=== PATIENT | female | born 1950 | race Caucasian/White ===

== ENCOUNTER 2017-06-18 09:51 | Emergency (ER) | payer MEDICARE ==
[2017-06-18] MEDS ORDERED: Sodium Chloride 0.9% 1000 ML 1,000 ML ONE (10:10)
[2017-06-18] MEDS ORDERED: Sodium Chloride 0.9% 1000 ML 1,000 ML IV SCH (10:15)
[2017-06-18 10:22] LABS: Collection Type CATH; Leukocyte Esterase NEGATIVE (NEGATIVE)
[2017-06-18 10:23] LABS: ADD URINE CULTURE? YES (NO); Bilirubin NEGATIVE (NEGATIVE); Blood NEGATIVE Ery/ul (0-5); COMPLETE URINE MICROSCOPIC? YES; Glucose NEGATIVE (NEGATIVE)
[2017-06-18 10:34] LABS: BASOPHIL % 0.1 % (0.0-0.4); Eosinophil % 12.2 % (0.00-5.0); Granulocytes % 49.3 % (36.0-66.0); Lymphocytes % 27.9 % (24.0-44.0); Mean Cell Volume 107.2 fl (78-100); Mean Corpuscular Hemoglobin 33.2 pg (26-32); Mean Platelet Volume 8.6 fl (6-9.5); Monocytes % 10.5 % (0.0-12.0); Platelet Count 288 K/mm3 (150-450); Red Blood Count 3.19 M/mm3 (4.1-5.4); Red Cell Distribution Width 13.5 % (11.5-14.0); White Blood Count 7.3 K/mm3 (4.0-10.5)
[2017-06-18 10:41] LABS: ALBUMIN 3.5 g/dL (3.4-5.0); ALKALINE PHOSPHATASE 105 U/L (46-116); BLOOD UREA NITROGEN 21 mg/dL (9-20); CHLORIDE 107 mEq/L (98-107); Carbon Dioxide 31.4 mEq/L (21-32); Glucose 105 MG/DL (70-110); Potassium 3.8 mEq/L (3.5-5.1); SGOT/AST 28 U/L (15-37); SGPT/ALT 8 U/L (12-78); SODIUM 145 mEq/L (136-145); Total Protein 6.9 gm/dL (6.4-8.2)
[2017-06-18 10:56] LABS: Bacteria PACKED /HPF (NEGATIVE); Epithelial Cells FEW /HPF (FEW)
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
[2017-06-18 12:12] VITALS: PULSE 66
[2017-06-18 13:12] VITALS: O2SAT 94
[2017-06-18 13:14] LABS: VBG BASE EXCESS 5.3 (-2.0-2.0); VBG CARBOXYHEMOGLOBIN 3.2 % T HGB (0.0-6.9); VBG HCO3- 33.5 meq/L (22-28); VBG HEMOGLOBIN 11.5; VBG O2 SATURATION 45.3 (95-100); VBG POTASSIUM 3.9 (3.5-5.1); VBG pH 7.3 (7.32-7.42)
[2017-06-18 13:38] VITALS: BP 160/75
--- NOTE | 2017-06-18 20:25 | XRAY ---
Indication: Confusion. Multiple contiguous axial images obtained through the head without contrast. Comparison: March 09, 2015. Images through the base of the brain degraded by motion artifact even with repeat CT. Stable age-appropriate global atrophy and mild periventricular degenerative micro-ischemia bilaterally. No acute intracranial hemorrhage, abnormal extra-axial fluid collection, or mass effect. Fourth ventricle is midline without hydrocephalus. Bony calvarium intact. Visualized paranasal sinuses and mastoid air cells are clear. Impression: 1. Motion artifact. 2. Grossly stable nonacute senile brain. Comment: Preliminary interpretation was made by [facility]. No discrepancy. CTDI 65.91
--- NOTE | 2017-06-18 20:27 | XRAY ---
Indication: Confusion. Comparison: March 09, 2015. Portable chest unchanged again demonstrating chronic lung markings without focal infiltrate, consolidation, or large effusion. Heart is not enlarged for AP portable technique. Bony thorax intact again with mild degenerative changes. Impression: Stable nonacute chest with chronic features.
== END 2017-06-18 13:30 | disposition home or self-care (01) ==
LOC: ED 09:51
DX: R53.83 Other fatigue (principal); R41.0 Disorientation, unspecified; E78.00 Pure hypercholesterolemia, unspecified; I10 Essential (primary) hypertension; I25.2 Old myocardial infarction; E05.90 Thyrotoxicosis, unspecified without thyrotoxic crisis or storm; Z79.899 Other long term (current) drug therapy
CPT/HCPCS: 93041; 99284; 96360; 96361; 93005; 81000; 84443; 36415; 84439; 87186; 80307; 85025; 87077; 80053; 87086; 71010; 70450; 82805; 83605; P9612; G0481

== ENCOUNTER 2018-01-08 06:51 | Observation (INO) | payer MEDICARE ==
[2018-01-08] MEDS ORDERED: Sodium Chloride 0.9% 1000 ML 1,000 ML IV STA (07:06)
[2018-01-08] MEDS ORDERED: Sodium Chloride 0.9% 1000 ML 1,000 ML ONE (07:14)
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
[2018-01-08 07:26] LABS: BASOPHIL % 0.3 % (0.0-0.4); Basophil (Absolute #) 0.02 (0-0.4); Eosinophil % 4.4 % (0.00-5.0); Granulocyte Absolute (ANC) 4.23 (1.4-6.9); Granulocytes % 61.5 % (36.0-66.0); Hematocrit 38.2 % (35-47); Hemoglobin 12.6 gm/dl (12.0-16.0); Lymphocyte (Absolute #) 1.64 (1.0-4.6); Lymphocytes % 23.8 % (24.0-44.0); Mean Cell Volume 99.2 fl (78-100); Mean Corpuscular Hemoglobin 32.7 pg (26-32); Mean Platelet Volume 8.3 fl (6-9.5); Monocyte (Absolute #) 0.69 (0.0-1.3); Platelet Count 275 K/mm3 (150-450); Red Blood Count 3.85 M/mm3 (4.1-5.4); White Blood Count 6.9 K/mm3 (4.0-10.5)
[2018-01-08 07:41] LABS: ALBUMIN 3.7 g/dL (3.5-5.0); ALKALINE PHOSPHATASE 133 U/L (38-126); ANION GAP 11.1 MEQ/L (5-15); BLOOD UREA NITROGEN 17 mg/dL (7-17); CHLORIDE 106 mmol/L (98-107); CK-Creatinine Phosphokinase 31 U/L (30-135); Calcium 9.3 mg/dL (8.4-10.2); Carbon Dioxide 29 mmol/L (22-30); Creatinine 1 0.73 mg/dL (0.52-1.04); Glucose 111 mg/dL (74-106); Potassium 4.1 mmol/L (3.5-5.1); SGOT/AST 21 U/L (14-36); SGPT/ALT 24 U/L (0-35); SODIUM 142 mmol/L (137-145); Total Protein 6.7 g/dL (6.3-8.2)
[2018-01-08 07:42] LABS: ACETAMINOPHEN < 10 ug/ml (10-30); ETHYL ALCOHOL < 10 mg/dL (0-10); SALICYLATE < 1.0 mg/dL (2-20)
[2018-01-08 08:26] LABS: Appearance CLEAR (CLEAR); Bilirubin NEGATIVE (NEGATIVE); Blood NEGATIVE Ery/ul (0-5); Glucose NEGATIVE (NEGATIVE); Ketones NEGATIVE (NEGATIVE); Leukocyte Esterase NEGATIVE (NEGATIVE); Nitrite NEGATIVE (NEGATIVE); Protein,Urine Dip NEGATIVE (Negative); Urobilinogen NORMAL mg/dL (0-1)
[2018-01-08 08:40] LABS: Amphetamine,Urine NEGATIVE (NEGATIVE); Barbiturate,Urine NEGATIVE (NEGATIVE); Benzodiazepine,Urine POSITIVE (NEGATIVE); Cocaine,Urine NEGATIVE (NEGATIVE); Methadone,Urine NEGATIVE (NEGATIVE); Opiate,Urine NEGATIVE (NEGATIVE); PCP,Urine NEGATIVE (NEGATIVE); THC,Urine NEGATIVE (NEGATIVE)
[2018-01-08] MEDS ORDERED: DUONEB 0.5-3 MG/3 ml Neb IH PRN (09:01)
[2018-01-08] MEDS: Sodium Chloride 0.9% 1000 ML 1,000 ML IV SCH ×2 (09:53→19:57)
[2018-01-08] MEDS ORDERED: ACETAMINOPHEN PO PRN (12:05)
[2018-01-08] MEDS ORDERED: HYDROCODONE PO PRN (12:05)
[2018-01-08] MEDS ORDERED: NORCO 5/325 MG PO PRN (12:12)
[2018-01-08] MEDS ORDERED: MEDICATION INTERVENTION MC SCH (12:15)
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
[2018-01-08] MEDS: NORVASC 5 MG PO SCH (12:49)
[2018-01-08] MEDS: Imdur 30 MG PO SCH (12:49)
[2018-01-08] MEDS: Zestril 20 MG PO SCH ×2 (12:49→21:52)
[2018-01-08] MEDS: Ditropan XL 5 MG PO SCH ×2 (12:49→21:50)
[2018-01-08] MEDS: ENOXAPARIN SODIUM SQ SCH (12:51)
[2018-01-08] MEDS ORDERED: DUONEB 0.5-3 MG/3 ml Neb IH SCH (19:00)
--- NOTE | 2018-01-08 19:33 | XRAY ---
Indication: Pain following fall. Multiple contiguous axial images obtained through the cervical spine. Sagittal and coronal reformatted images obtained. Comparison: March 06, 2011. Axial images again negative for acute fracture, suspicious bony lesions, or spinal canal stenosis. Again mild/moderate C4-C6 degenerative endplate spurring and atlantoaxial degenerative changes. Sagittal and coronal reformatted images demonstrate normal alignment. Stable minimal C6/C7 and anterior wedging. No acute fracture, subluxation, or jump facet. Normal-appearing craniocervical junction. Stable 1 m right thyroid nodule/cyst and bilateral carotid calcifications. Remaining visualized noncontrasted soft tissues unremarkable. Lung apices clear. CT head reported separately. Impression: 1. Again negative for acute fracture/subluxation. 2. Stable multilevel degenerative changes. 3. Stable right thyroid nodule/cyst. Comment: Preliminary interpretation was made by [facility]. No critical discrepancy. CTDI 121.54
--- NOTE | 2018-01-08 19:33 | XRAY ---
Indication: Pain following fall. Comparison: June 18, 2017. Portable chest remains clear. Heart and mediastinal structures within normal limits for AP portable technique. Bony thorax intact again with mild osteopenia and degenerative changes. Impression: Stable nonacute chest with chronic features.
--- NOTE | 2018-01-08 19:34 | XRAY ---
Indication: Pain following fall. Multiple contiguous axial images obtained through the head without contrast. Comparison: June 18, 2017. Images through the base of the brain slightly degraded by motion artifact. Again age-appropriate global atrophy and mild periventricular degenerative micro-ischemia bilaterally. No acute intracranial hemorrhage, abnormal extra-axial fluid collection, or mass effect. Fourth ventricle is midline without hydrocephalus. Bony calvarium intact. Visualized paranasal sinuses and mastoid air cells are clear. Impression: Stable nonacute senile brain. Comment: Preliminary interpretation was made by [facility]. No discrepancy. CTDI 48.76
[2018-01-08] MEDS ORDERED: ZOCOR 20MG PO SCH (22:00)
[2018-01-08] MEDS ORDERED: NON-FORMULARY ITEM (Atorvastatin Calcium [Lipitor] 80 MG) PO SCH (22:00)
[2018-01-09] MEDS: Sodium Chloride 0.9% 1000 ML 1,000 ML IV SCH ×2 (04:59→14:42)
--- NOTE | 2018-01-09 07:45 | PCM.NOTE ---
Date and Time: 01/09/18 0742 Subjective Assessment: patient admits to overdosing on xanax, hasn't had any money to fill her meds since June and has no insurance. states she has not been taking xanax regularly but got some from a friend and overdoses, states she didn't intend to kill herself but then I asked about the letter and she states, yes she thinks she did write one Objective Exam General Appearance: no apparent distress Neurologic Exam: alert, oriented x 3 Skin Exam: normal color, warm, dry Respiratory Exam: normal breath sounds, lungs clear, No respiratory distress Cardiovascular Exam: regular rate/rhythm, normal heart sounds Gastrointestinal/Abdomen Exam: soft, No tenderness, No mass OBJECTIVE DATA Vital Signs: Vital Signs - 24 hr Temp Pulse Resp BP Pulse Ox 01/09/18 06:58 90 18 97 01/09/18 04:30 98.6 F 93 H 24 146/65 96 01/09/18 00:00 97.8 F 91 H 20 130/67 95 01/08/18 20:00 97.6 F 88 23 136/75 95 01/08/18 19:55 93 H 22 93 L 01/08/18 16:00 86 18 139/66 96 01/08/18 12:00 84 24 154/94 99 01/08/18 10:23 82 16 99 01/08/18 09:38 97.6 F 85 20 181/110 99 01/08/18 09:01 96 01/08/18 08:23 85 16 172/84 95 Oxygen-Last 24 hours O2 Percentage 2 Liters = 28% Oxygen Flowrate (L/min)-RT 2 Oxygen Flowrate (L/min)-RT 2 Oxygen Flowrate (L/min)-RT 2 Intake and Output: Intake & Output 01/06/18 01/07/18 01/08/18 01/09/18 11:59 11:59 11:59 11:59 Intake Total 2492 Balance 2492 Weight 88.8 kg Lab Results: Lab Results-Last 24 Hours 01/08/18 01/08/18 01/08/18 Range/Units 10:15 13:15 16:15 Troponin I < 0.012 < 0.012 < 0.012 (0.000-0.034) ng/mL 01/08/18 01/08/18 Range/Units 19:05 22:05 Troponin I < 0.012 < 0.012 (0.000-0.034) ng/mL Assessment/Plan (1) Suicide attempt Current Visit: Yes Status: Acute Assessment & Plan: patient is alert and oriented today, to have psych consult (2) Overdose Current Visit: Yes Status: Acute Qualifiers: Encounter type: initial encounter Injury intent: intentional self-harm Qualified Code(s): T50.902A - Poisoning by unspecified drugs, medicaments and biological substances, intentional self-harm, initial encounter Assessment & Plan: no more controlled substances, since patient has been off for 6 months no risk of benzo withdrawal, I explained this to her and she adamantly refuses taking them at all since June Code(s): T50.901A - POISONING BY UNSP DRUG/MEDS/BIOL SUBST, ACCIDENTAL, INIT (3) COPD (chronic obstructive pulmonary disease) Current Visit: Yes Status: Chronic Qualifiers: COPD type: chronic bronchitis (4) Hyperthyroidism Current Visit: Yes Status: Chronic Code(s): E05.90 - THYROTOXICOSIS, UNSP WITHOUT THYROTOXIC CRISIS OR STORM (5) Chest tightness Current Visit: No Status: Acute
[2018-01-09] MEDS: Zestril 20 MG PO SCH (09:41)
[2018-01-09] MEDS: Ditropan XL 5 MG PO SCH (09:41)
[2018-01-09] MEDS: Imdur 30 MG PO SCH (09:41)
[2018-01-09] MEDS: NORVASC 5 MG PO SCH (09:42)
[2018-01-09] MEDS: ENOXAPARIN SODIUM SQ SCH (09:43)
[2018-01-09] MEDS ORDERED: NON-FORMULARY ITEM (Amlodipine Besylate [Norvasc] 2.5 MG) PO SCH (10:00)
[2018-01-09] MEDS ORDERED: METHIMAZOLE 5 MG PO SCH (10:00)
[2018-01-09] MEDS ORDERED: PTU 50MG PO SCH (15:00)
[2018-01-09 16:22] VITALS: BP 142/76; PULSE 107; O2SAT 96
== END 2018-01-09 17:20 | disposition short-term general hospital (02) ==
LOC: ED 06:51 → ICU 09:27
PROVIDERS: ADMIT Family Medicine; ATTEND Family Medicine
DX: T42.4X2A Poisoning by benzodiazepines, intentional self-harm, initial encounter (principal); F32.9 Major depressive disorder, single episode, unspecified; I10 Essential (primary) hypertension; R07.89 Other chest pain; F41.9 Anxiety disorder, unspecified; E05.90 Thyrotoxicosis, unspecified without thyrotoxic crisis or storm; J44.9 Chronic obstructive pulmonary disease, unspecified; R45.82 Worries; E78.00 Pure hypercholesterolemia, unspecified; G47.9 Sleep disorder, unspecified; Z79.899 Other long term (current) drug therapy; I25.2 Old myocardial infarction; M19.90 Unspecified osteoarthritis, unspecified site; K21.9 Gastro-esophageal reflux disease without esophagitis
CPT/HCPCS: 36415; 70450; 71045; 72125; 80053; 80307; 81002; 82550; 84484; 85025; 90791; 93005; 93041; 93268; 94640; 96360; 99285; G0481; J1650; Q3014; A9270-GY; G0378; G0480

== ENCOUNTER 2020-06-02 18:59 | Emergency (ER) | payer MEDICARE ==
[2020-06-02] MEDS ORDERED: Catapres 0.1 MG PO STA (19:29)
[2020-06-02] MEDS ORDERED: TRANDATE 20 MG/5 ML SYRINGE IV ONE ×2 (19:30→19:36)
[2020-06-02] MEDS ORDERED: Catapres 0.1 MG ONE (19:36)
[2020-06-02 19:59] LABS: Absolute Neutrophil Ct (ANC) 3.95 (1.4-6.9); BASOPHIL % 0.3 % (0.0-0.4); Basophil (Absolute #) 0.02 (0-0.4); Eosinophil % 3.4 % (0.00-5.0); Eosinophil (Absolute #) 0.23 (0-0.5); Hematocrit 36.7 % (35-47); Hemoglobin 12.1 gm/dl (12.0-16.0); Lymphocyte (Absolute #) 2.16 (1.0-4.6); Lymphocytes % 31.5 % (24.0-44.0); Mean Cell Volume 102.5 fl (78-100); Mean Corpuscular Hemoglobin 33.8 pg (26-32); Monocyte (Absolute #) 0.49 (0.0-1.3); Monocytes % 7.2 % (0.0-12.0); Neutrophil % 57.6 % (36.0-66.0); Platelet Count 47 K/mm3 (150-450); Red Blood Count 3.58 M/mm3 (4.1-5.4); Red Cell Distribution Width 16.7 % (11.5-14.0); White Blood Count 6.9 K/mm3 (4.0-10.5)
[2020-06-02 20:01] LABS: INR 1.09 (0.8-3.0); PROTIME 12.3 SECONDS (9.95-12.35)
[2020-06-02 20:05] LABS: ALBUMIN 4.4 g/dL (3.5-5.0); ALKALINE PHOSPHATASE 147 U/L (38-126); ANION GAP 11.1 MEQ/L (5-15); BLOOD UREA NITROGEN 25 mg/dL (7-17); CHLORIDE 100 mmol/L (98-107); Calcium 9.5 mg/dL (8.4-10.2); Carbon Dioxide 31 mmol/L (22-30); Creatinine 1 0.92 mg/dL (0.52-1.04); EST GLOMERULAR FILTRATION RATE > 60.0 ML/MIN; Glucose 101 mg/dL (74-106); Potassium 3.8 mmol/L (3.5-5.1); SGOT/AST 20 U/L (14-36); SGPT/ALT 15 U/L (0-35); SODIUM 139 mmol/L (137-145); Total Protein 8.1 g/dL (6.3-8.2)
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
[2020-06-02] MEDS ORDERED: Catapres TTS-2 PATCH TOP SCH (21:00)
[2020-06-02] MEDS ORDERED: Catapres TTS-2 PATCH ONE (21:01)
[2020-06-02 21:03] VITALS: BP 117/76; PULSE 78
[2020-06-02 21:45] VITALS: O2SAT 97
[2020-06-02 22:22] LABS: Slide Review 1 YES
== END 2020-06-02 21:16 | disposition home or self-care (01) ==
LOC: ED 18:59
DX: I10 Essential (primary) hypertension (principal); I25.2 Old myocardial infarction
CPT/HCPCS: 36000; 36415; 80053; 84484; 85025; 85610; 85730; 96374; 99284; A9270-GY

== ENCOUNTER 2022-02-15 18:49 | Emergency (ER) | payer MEDICARE ==
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
[2022-02-15] MEDS ORDERED: NORCO 5/325 MG PO ONE (21:53)
[2022-02-15] MEDS ORDERED: NORCO 5/325 MG ONE (21:56)
[2022-02-15 22:24] VITALS: BP 142/71; PULSE 74; O2SAT 98
--- NOTE | 2022-02-16 08:37 | XRAY ---
Indication: Pain following fall. Comparison: None 3 view right shoulder demonstrates osteopenia and minimally displaced comminuted acute fracture humeral head/neck. Moderate degenerative changes of visualized thoracic spine. No other bony, articular, or soft tissue abnormalities.
--- NOTE | 2022-02-16 08:37 | XRAY ---
Indication: Pain following fall. Comparison: None 2 view right humerus demonstrates osteopenia and minimally displaced comminuted acute fracture humeral head/neck. No other bony, articular, or soft tissue abnormalities.
== END 2022-02-15 22:14 | disposition home or self-care (01) ==
LOC: ED 18:49
DX: S42.211A Unspecified displaced fracture of surgical neck of right humerus, initial encounter for closed fracture (principal); W01.0XXA Fall on same level from slipping, tripping and stumbling without subsequent striking against object, initial encounter; Y92.007 Garden or yard of unspecified non-institutional (private) residence as the place of occurrence of the external cause; M25.511 Pain in right shoulder; M79.621 Pain in right upper arm; E78.5 Hyperlipidemia, unspecified; I10 Essential (primary) hypertension; J43.9 Emphysema, unspecified; Z72.0 Tobacco use; Z79.899 Other long term (current) drug therapy
CPT/HCPCS: 36000; 73030; 73060; 99284; A9270-GY

== ENCOUNTER 2023-02-04 05:21 | Emergency (ER) | payer MEDICARE ==
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
[2023-02-04] MEDS ORDERED: SUBLIMAZE 100 MCG/2 ML IV ONE ×2 (06:35→07:31)
[2023-02-04] MEDS ORDERED: SUBLIMAZE 100 MCG/2 ML ONE ×2 (06:40→07:38)
--- NOTE | 2023-02-04 06:53 | XRAY ---
CLINICAL HISTORY:Trauma-fall- posterior head pain- no loc- patient on blood thinners; COMPARISON:None; TECHNIQUES:Axial non-contrast CT scan of the brain was performed from the skull base to the high parietal region; FINDINGS: No definite calvarium fractures. No intracerebral or extra axial hematoma. Tiny ill-defined hypodense areas were noted in the subcortical and periventricular white matter bilaterally suggesting microvascular ischemic changes. Tiny old lacunar infarcts were noted in the right basal ganglia region. Prominent ventricles and extra-axial CSF spaces noted finding consistent with age-appropriate global brain involutional changes. Marvin-white matter differentiation is maintained. No midline shifts or deformity. No established territorial infarction was identified. Normal configuration of the cerebral ventricles. Normal CT appearance of the posterior fossa structures namely the cerebellar hemispheres, brainstem, and cerebellar peduncles. The IACs are unremarkable. The cerebellopontine angles are clear. The pituitary gland, the pineal gland, and the optic chiasm are unremarkable. The osseous structures in the skull base are unremarkable. The scanned paranasal sinuses are clear. IMPRESSION: No definite calvarium fractures. No intracerebral or extra axial hematoma. Mild microvascular images noted in the brain with old lacunar infarcts in the right basal ganglia region. Age-appropriate global brain involutional changes noted. No established territorial infarction or mass effect. Electronically Signed by: Perri Diaz MD. (02/04/2023 05:47:11 [employer] LIAISON)
--- NOTE | 2023-02-04 07:07 | XRAY ---
CLINICAL HISTORY:fall COMPARISON:None; TECHNIQUES:Axial sections of the CT pelvis were obtained without administration of intravenous contrast. Sagittal and coronal images were also acquired; FINDINGS: Minimally displaced oblique intertrochanteric fracture of the right proximal femur with mild adjacent soft tissue swelling. A fracture line is seen passing through the right acetabular roof and the superior aspect of the acetabulum representing undisplaced fracture. Bilateral hip joints are intact. Moderate bilateral hip joint degenerative changes. Subchondral geode within the acetabulum on the right side. Disc bulge at L4-L5 level resulting in mild bilateral neural foraminal narrowing. Facet arthropathic changes in the visualized lumbar spine. Generalized reduced bone density is noted. Visualized pelvic viscera appears grossly unremarkable. IMPRESSION: Minimally displaced oblique intertrochanteric fracture of the right proximal femur with mild adjacent soft tissue swelling. A fracture line is seen passing through the right acetabular roof and the superior aspect of the acetabulum representing undisplaced fracture. Generalized reduced bone density is noted. [facility] was called at 6:02 AM [employer]ACHINE, 02/04/2023 and results were verbally communicated to Dr. Castellano. Electronically Signed by: Perri Diaz MD. (02/04/2023 06:03:34 [employer])
[2023-02-04 08:10] VITALS: O2SAT 98
--- NOTE | 2023-02-04 08:43 | XRAY ---
Indication: Pain following fall. Comparison: None 2 view left forearm demonstrates osteopenia, old distal radius fracture, and mild/moderate 1st metacarpal multangular scaphoid degenerative changes with small posterior heterotopic ossification. No other bony, articular, or soft tissue abnormalities.
--- NOTE | 2023-02-04 08:45 | XRAY ---
Indication: Pain following fall. Comparison: None 3 view right hand limited due to overlying IV catheter/tubing. Osteopenia, minimal degenerative changes all IP/MCP joints, and mild degenerative changes 1st metacarpal multangular scaphoid articulation. No other bony, articular, or soft tissue abnormalities.
[2023-02-04 09:05] VITALS: BP 161/74; PULSE 80
[2023-02-04] MEDS ORDERED: Ativan 2 MG/1 ML VIAL IV ONE (09:06)
[2023-02-04] MEDS ORDERED: Ativan 2 MG/1 ML VIAL ONE (09:22)
== END 2023-02-04 09:36 | disposition short-term general hospital (02) ==
LOC: ED 05:21
DX: S72.144A Nondisplaced intertrochanteric fracture of right femur, initial encounter for closed fracture (principal); W01.0XXA Fall on same level from slipping, tripping and stumbling without subsequent striking against object, initial encounter; M79.641 Pain in right hand; M79.632 Pain in left forearm; E78.5 Hyperlipidemia, unspecified; I10 Essential (primary) hypertension; J43.9 Emphysema, unspecified; Z79.899 Other long term (current) drug therapy; Z72.0 Tobacco use
CPT/HCPCS: 51702; 70450; 72192; 73090; 73130; 96374; 96375; 96376; 99285; J2060; J3010

== ENCOUNTER 2023-06-29 14:38 | Emergency (ER) | payer MEDICARE ==
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
[2023-06-29 15:21] LABS: Mean Cell Volume 96.9 fL (78-100); Mean Corpuscular Hemoglobin 27.3 pg (26-32); Mean Corpuscular Hgb Concent. 28.2 g/dL (32-36); Red Blood Count 2.27 x10^6/uL (4.1-5.4); Red Cell Distribution Width 17.2 % (11.5-14.0); White Blood Count 5.1 x10^3/uL (4.0-10.5)
[2023-06-29 15:25] LABS: Hemoglobin 6.2 g/dL (12.0-16.0)
[2023-06-29 15:26] LABS: Platelet Count 12 x10^3/uL (150-450)
[2023-06-29 15:51] LABS: ALBUMIN 3.8 g/dL (3.5-5.0); ALKALINE PHOSPHATASE 178 U/L (38-126); AMYLASE 71 U/L (30-110); BLOOD UREA NITROGEN 30 mg/dL (7-17); CHLORIDE 109 mmol/L (98-107); Calcium 8.7 mg/dL (8.4-10.2); Carbon Dioxide 24 mmol/L (22-30); Creatinine 1 0.77 mg/dL (0.52-1.04); EST GLOMERULAR FILTRATION RATE > 60.0 ML/MIN; Glucose 103 mg/dL (74-106); LIPASE 180 U/L (23-300); Potassium 4.4 mmol/L (3.5-5.1); SGOT/AST 26 U/L (14-36); SGPT/ALT 17 U/L (0-35); SODIUM 141 mmol/L (137-145); T4 (Thyroxine) 8.28 ug/dL (5.53-10.96); Total Protein 7.1 g/dL (6.3-8.2)
[2023-06-29 15:55] LABS: Basophil 2 % (0.0-1.0); Eosinophil 1 % (0.00-3.0); Lymphocytes 23 % (24-44); Monocyte 3 % (0.0-12.0); Neutrophils 71 % (36.0-66.0); Platelet Estimate DECREASED (NORMAL); Total Cells Counted 100
[2023-06-29 15:56] LABS: ANISOCYTOSIS 1+; Hypochromia 1+
[2023-06-29 15:57] LABS: Polychromasia 2+
--- NOTE | 2023-06-29 16:31 | XRAY ---
Indication: Vomiting. Anemia. Multiple contiguous axial images obtained through the abdomen and pelvis without contrast. Comparison: May 10, 2013 Study is slightly degraded by respiration artifact throughout. Lung bases again demonstrates dependent atelectasis. Heart not enlarged. New small hiatal hernia. Noncontrasted stomach and bowel loops appear nonobstructed. Appendix not seen. Worsening moderate diffuse scatter colonic fecal debris. Again tiny splenic calcified granulomas. New 1 cm right lower pole renal cyst. No free fluid/air. Remaining liver, gallbladder, pancreas, spleen, adrenal glands, kidneys, ureters, bladder, and uterus are unremarkable for noncontrast exam. Worsening moderate scattered aortoiliac calcifications without AAA. Osseous structures intact again with osteopenia and worsening mild/moderate degenerative changes throughout the thoracolumbar spine. New old bilateral proximal femur fractures with intact orthopedic hardware. No ventral or inguinal hernias. Impression: 1. Respiration artifact. 2. Worsening moderate diffuse fecal stasis. 3. New small hiatal hernia and small left renal cyst. 4. Again chronic findings including arteriosclerotic disease, chronic bony findings, and old granulomatous disease.
[2023-06-29] MEDS ORDERED: Zofran 4 MG/2 ML VIAL ONE (16:46)
[2023-06-29] MEDS: Zofran 4 MG/2 ML VIAL IV ONE (16:49)
[2023-06-29 17:09] VITALS: O2SAT 92
[2023-06-29 17:39] LABS: Appearance Clear (Clear); Bacteria Many /HPF (None Seen); Bilirubin Negative (Negative); Blood Negative (Negative); Epithelial Cells None Seen /HPF (None Seen); Glucose, Urine Negative (Negative); Hyaline Casts NONE SEEN /LPF (0-2); Ketones Negative (Negative); Leukocyte Esterase Negative (Negative); Nitrite Positive (Negative); Ph 6.5 (4.6-8.0); Protein,Urine Dip Negative (Negative); RBC 0-2 /HPF (0-5); Urobilinogen 0.2 mg/dL (0.2); WBC 0-2 /HPF (0-5)
[2023-06-29 17:44] LABS: ADD URINE CULTURE? YES (NO)
[2023-06-29 18:25] VITALS: PULSE 99
[2023-06-29 18:27] VITALS: BP 160/138; RESP 23; TEMP 98.9
[2023-06-29 19:50] LABS: ABO TYPING O; Antibody Screen NEGATIVE (NEGATIVE); RH TYPING POSITIVE
[2023-06-29 19:54] LABS: CROSS MATCH (PRBC) COMPATIBLE (COMPATIBLE)
== END 2023-06-29 19:19 | disposition short-term general hospital (02) ==
LOC: ED 14:38
DX: D64.9 Anemia, unspecified (principal); D69.6 Thrombocytopenia, unspecified; R11.10 Vomiting, unspecified; I10 Essential (primary) hypertension; E78.5 Hyperlipidemia, unspecified; Z79.899 Other long term (current) drug therapy; Z72.0 Tobacco use
CPT/HCPCS: 36000; 36415; 74176; 80053; 81001; 82150; 83690; 84436; 84443; 84484; 85025; 86850; 86900; 86901; 86922; 87077; 87086; 87186; 93005; 99284; 99291; J2405

== ENCOUNTER 2023-08-12 01:10 | Emergency (ER) | payer MEDICARE ==
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
[2023-08-12 01:30] VITALS: TEMP 97.3
[2023-08-12] MEDS ORDERED: APRESOLINE 20 MG/ML INJ IV ONE (01:34)
[2023-08-12] MEDS ORDERED: CLONIDINE 0.1 MG TABLET PO ONE (01:35)
[2023-08-12] MEDS ORDERED: APRESOLINE 20 MG/ML INJ ONE (01:36)
[2023-08-12] MEDS ORDERED: CLONIDINE 0.1 MG TABLET ONE (01:36)
[2023-08-12] MEDS ORDERED: Zofran 4 MG/2 ML VIAL IV ONE (02:27)
[2023-08-12] MEDS ORDERED: MORPHINE SULFATE 2 MG INJ IV ONE (02:27)
[2023-08-12] MEDS ORDERED: Zofran 4 MG/2 ML VIAL ONE (02:31)
[2023-08-12] MEDS ORDERED: MORPHINE SULFATE 2 MG INJ ONE (02:31)
[2023-08-12] MEDS ORDERED: PERCOCET TABLET 5/325MG PO STA (02:33)
[2023-08-12] MEDS ORDERED: PERCOCET TABLET 5/325MG ONE (02:46)
[2023-08-12 03:01] VITALS: BP 118/89; PULSE 97; RESP 18; O2SAT 97
--- NOTE | 2023-08-12 08:20 | XRAY ---
Indication: Pain following fall. Comparison: None 3 view right ankle demonstrates nondisplaced lateral malleolus fracture with soft tissue swelling. Elsewhere osteopenia, small lateral malleolus tip heterotopic ossification, tiny spurring medial malleolus, and small posterior heel spur.
--- NOTE | 2023-08-12 08:22 | XRAY ---
Indication: Pain following fall. Comparison: None 3 nonweightbearing views right foot demonstrates osteopenia, mild tarsometatarsal degenerative changes, tiny spurring base 5th metatarsal, small posterior heel spur, and small cuboid accessory ossicle. No other bony, articular, or soft tissue abnormalities.
== END 2023-08-12 03:10 | disposition home or self-care (01) ==
LOC: ED 01:10
DX: S82.831A Other fracture of upper and lower end of right fibula, initial encounter for closed fracture (principal); W18.40XA Slipping, tripping and stumbling without falling, unspecified, initial encounter; I10 Essential (primary) hypertension; E78.5 Hyperlipidemia, unspecified; Z79.891 Long term (current) use of opiate analgesic; Z79.899 Other long term (current) drug therapy; Z72.0 Tobacco use
CPT/HCPCS: 29515; 36000; 73610; 73630; 96374; 96375; 99284; J0360; J2270; J2405; A9270-GY

== ENCOUNTER 2024-01-29 17:26 | Emergency (ER) | payer MEDICARE ==
[2024-01-29 17:38] VITALS: TEMP 97.2
[2024-01-29] MEDS: Sodium Chloride 0.9% 1000 ML 1,000 ML IV SCH (17:49)
[2024-01-29] MEDS: TORAdol 30 mg Injection IM ONE (17:54)
[2024-01-29] MEDS ORDERED: TORAdol 30 mg Injection ONE (17:54)
[2024-01-29 18:00] LABS: Absolute Neutrophil Ct (ANC) 3.77 x10^3/uL (1.4-6.9); BASOPHIL % 0.5 % (0.0-0.4); Basophil (Absolute #) 0.03 x10^3/uL (0-0.4); Eosinophil % 1.5 % (0.00-5.0); Eosinophil (Absolute #) 0.08 x10^3/uL (0-0.5); Hematocrit 31.5 % (35-47); IMMATURE GRAN # 0.04 x10^3u/L (0.00-0.03); IMMATURE GRAN % 0.7 % (0.00-0.4); Lymphocytes % 21.8 % (24.0-44.0); Mean Corpuscular Hemoglobin 31.7 pg (26-32); Mean Corpuscular Hgb Concent. 31.7 g/dL (32-36); Monocyte (Absolute #) 0.38 x10^3/uL (0.0-1.3); Monocytes % 6.9 % (0.0-12.0); Neutrophil % 68.6 % (36.0-66.0); Red Blood Count 3.15 x10^6/uL (4.1-5.4); Red Cell Distribution Width 15.9 % (11.5-14.0); White Blood Count 5.5 x10^3/uL (4.0-10.5)
[2024-01-29 18:07] LABS: Platelet Count 13 x10^3/uL (150-450)
[2024-01-29 18:19] LABS: ANION GAP 12.4 MEQ/L (5-15); BILIRUBIN,TOTAL 0.6 mg/dL (0.2-1.3); Calcium 9.5 mg/dL (8.4-10.2); Creatinine 1 1.42 mg/dL (0.52-1.04); EST GLOMERULAR FILTRATION RATE 38.6 ML/MIN; Potassium 4.6 mmol/L (3.5-5.1); Total Protein 7.3 g/dL (6.3-8.2)
[2024-01-29 18:20] LABS: INR 0.99 (0.8-3.0); PROTIME 10.8 SECONDS (9.4-12.5)
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
[2024-01-29] MEDS ORDERED: Sodium Chloride 0.9% 1000 ML 1,000 ML ONE (19:15)
[2024-01-29] MEDS: Sodium Chloride 0.9% 1000 ML 1,000 ML IV STA (19:16)
--- NOTE | 2024-01-29 20:25 | XRAY ---
CLINICAL HISTORY: fall, severe thrombocytopenia COMPARISON: CT dated 06/29/2023. TECHNIQUE: CT scan of the abdomen and pelvis was performed without IV contrast. Coronal and sagittal reconstructive images were also obtained. One of the following dose reduction techniques was utilized for this exam: Automated exposure control, adjustment of the mA and/or kV according to patient size, and use of iterative reconstruction. FINDINGS: Abdomen: The liver is normal in size. No focal or diffuse parenchymal abnormality. The portal vein, intrahepatic biliary radicals and the bile ducts are normal. The spleen, is normal in size and shows multiple tiny foci of calcifications. The pancreas, and adrenal glands are unremarkable. The kidneys are unremarkable. They are normal in size and shape. No calculi or hydronephrosis. The gallbladder is normal. No pericholecystic collection or radio dense calculi in the gall bladder. The ascending colon, the transverse colon, the descending colon and visualized small bowel loops are unremarkable. There is no evidence of significant enlargement of the mesenteric or retroperitoneal lymph nodes. Aorta and branches show atherosclerotic changes. Pelvis: The urinary bladder is unremarkable. The rectosigmoid colon is unremarkable. No evidence of pelvic lymphadenopathy. The osseous structures show diffuse reduced bone density with spine degenerative spondylosis, and bilateral hip fixation. No lytic or sclerotic bone lesions. Solitary calcified pulmonary nodule noted at left lower lobe measuring 12-15 mm. IMPRESSION: 1. Splenic calcifiec foci likely chronic granuloma. 2. Diffuse osteopenia. 3. Solitary pulmonary nodule incompletely seen in the left lower lung measuring 12-15 mm in size. Suggest follow up CT chest evaluation. 4. Unremarkable rest of the abdomen. 5. No interval changes. 6. No evidence for appedicitis. Electronically Signed by: Perri Diaz MD. (01/29/2024 20:20:40 EDT)
[2024-01-29 20:49] VITALS: O2SAT 98
[2024-01-29 20:52] LABS: Slide Review 1 YES
--- NOTE | 2024-01-29 21:13 | XRAY ---
Indication: Status post fall. Comparison: CT cervical spine January 08, 2018 3 view cervical spine again demonstrates osteopenia and mild/moderate multilevel degenerative spondylosis. New mild levoscoliosis centered at T1. No other bony, articular, or soft tissue abnormalities.
--- NOTE | 2024-01-29 21:13 | XRAY ---
Indication: Pain following fall. Comparison: January 08, 2018 Portable chest better inflated and remains clear. Heart not enlarged. Bony thorax intact again with osteopenia and degenerative changes. No new/acute findings.
--- NOTE | 2024-01-29 21:19 | XRAY ---
Indication: Status post fall. Comparison: None Single AP pelvis demonstrates osteopenia, mild lower lumbar degenerative changes, and old bilateral proximal femur fractures with incompletely visualized orthopedic hardware. No other bony, articular, or soft tissue abnormalities.
[2024-01-29 22:21] LABS: Appearance Clear (Clear); Bacteria Rare /HPF (None Seen); Bilirubin Negative (Negative); Blood Negative (Negative); Glucose, Urine Negative (Negative); Ketones Negative (Negative); Leukocyte Esterase Small (Negative); Nitrite Negative (Negative); Protein,Urine Dip 30 (Negative); RBC 0-2 /HPF (0-5); Specific Gravity 1.015 (1.005-1.030)
[2024-01-29 22:22] LABS: ADD URINE CULTURE? YES (NO); Epithelial Cells Few /HPF (None Seen)
[2024-01-29 22:38] VITALS: BP 195/96
[2024-01-30 00:25] VITALS: PULSE 82; RESP 18
== END 2024-01-30 00:35 | disposition home or self-care (01) ==
LOC: ED 17:26
DX: S30.0XXA Contusion of lower back and pelvis, initial encounter (principal); S20.229A Contusion of unspecified back wall of thorax, initial encounter; W17.89XA Other fall from one level to another, initial encounter; Z91.81 History of falling; Y92.007 Garden or yard of unspecified non-institutional (private) residence as the place of occurrence of the external cause; E78.5 Hyperlipidemia, unspecified; I10 Essential (primary) hypertension; Z79.899 Other long term (current) drug therapy; Z72.0 Tobacco use
CPT/HCPCS: 36000; 36415; 71045; 72040; 72170; 74176; 80053; 81001; 85025; 85610; 87086; 96360; 96361; 96372; 99284; J1885

== ENCOUNTER 2024-04-29 18:25 | Emergency (ER) | payer MEDICARE ==
[2024-04-29] MEDS ORDERED: NARCAN 2 MG/2 ML ONE (18:28)
--- NOTE | 2024-04-29 18:29 | ERPHSYRPT ---
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 Immature Gran % (Auto) (0.001-0.429) % Nucleat RBC Rel Count (0.00-0.2) % Eos # (Auto) (0.04-0.36) x10^3/uL Immature Gran # (Auto) (0.001-0.031) x10^3u/L Absolute Lymphs (auto) (1.18-3.74) x10^3/uL Absolute Monos (auto) (0.24-0.86) x10^3/uL Absolute Nucleated RBC (0.00-0.012) x10^3u/L Lymphocytes % (19.3-51.7) % Monocytes % (4.7-12.5) % Eosinophils % (0.7-5.8) % Basophils % (0.1-1.2) % Absolute Granulocytes (1.56-6.13) x10^3/uL Basophils # (0.01-0.08) x10^3/uL ESR 17 (0-20) mm/hr PT (9.4-12.5) SECONDS INR (0.8-3.0) APTT (25.1-36.5) SECONDS D-Dimer (0.0-0.50) mg/L Puncture Site RIGHT BRACHIAL pCO2 52 H (35-45) mmHg pO2 139 H* (75-100) mmHg pO2/FiO2 Ratio % Base Excess -1.5 (-2.0-2.0) O2 Saturation 97.0 (94-100) g/dF ABG pH 7.29 L (7.35-7.45) ABG HCO3 25.0 (22-28) ABG O2 Sat (Measured) 99.3 (95-100) % Edvin Test NOT APPLICABLE VBG pH (7.32-7.42) VBG pCO2 at Pat Temp (42-55) mm/Hg VBG pO2 at Pat Temp (25-40) mm/Hg VBG HCO3 (22-28) meq/L VBG O2 Sat (Leodan) (95-100) VBG Base Excess (-2.0-2.0) VBG Hemoglobin VBG Carboxyhemoglobin (0.0-6.9) % T HGB A-a Gradient 509 a/A Ratio 0.21 Hemoglobin 6.3 L* Carboxyhemoglobin 1.7 (0.0-6.9) % THgb Methemoglobin 0.6 L (1.4-1.5) % Potassium 6.5 H* (3.5-5.1) POC Potassium (3.5-5.1) Temperature 37.0 C POC O2 Flow Rate 100 % Sodium (135-145) mmol/L Chloride (98-107) mmol/L Carbon Dioxide (22-30) mmol/L Anion Gap (5-15) MEQ/L BUN (7-17) mg/dL Creatinine (0.52-1.04) mg/dL Estimated GFR ML/MIN Glucose (74-106) mg/dL Lactic Acid (0.4-2.0) Calcium (8.4-10.2) mg/dL Magnesium (1.6-2.3) mg/dL Total Bilirubin (0.2-1.3) mg/dL AST (14-36) U/L ALT (0-35) U/L Alkaline Phosphatase (38-126) U/L Ammonia (9-30) umol/L Creatine Kinase (30-135) U/L Troponin I (0.000-0.033) ng/mL NT-Pro-B Natriuret Pep (<300) pg/mL Serum Total Protein (6.3-8.2) g/dL Albumin (3.5-5.0) g/dL TSH 3rd Generation 0.322 L (0.470-4.680) mIU/L Urine Color (Yellow) Urine Appearance (Clear) Urine pH (4.6-8.0) Ur Specific Rea (1.005-1.030) Urine Protein (Negative) Urine Glucose (UA) (Negative) mg/dL Urine Ketones (Negative) Urine Blood (Negative) Urine Nitrite (Negative) Urine Bilirubin (Negative) Urine Urobilinogen (0.2) mg/dL Ur Leukocyte Esterase (Negative) U Hyaline Cast (Auto) (0-2) /LPF Urine Microscopic RBC (0-5) /HPF Urine Microscopic WBC (0-5) /HPF Ur Epithelial Cells (None Seen) /HPF Urine Bacteria (None Seen) /HPF Urine Culture Reflexed (NO) Urine Opiates Level (NEGATIVE) Ur Methadone (NEGATIVE) Urine Barbiturates (NEGATIVE) Ur Phencyclidine (PCP) (NEGATIVE) Urine Amphetamine (NEGATIVE) U Benzodiazepines Scrn (Oukayk=279) ng/mL U Benzodiazepine Level Urine Cocaine (NEGATIVE) Urine Marijuana (THC) (NEGATIVE) Ethyl Alcohol (0-10) mg/dL Influenza Type A Ag (NEGATIVE) Influenza Type B Ag (NEGATIVE) RSV (PCR) (NEGATIVE) SARS-CoV-2 (PCR) (NEGATIVE) Slides for Path Review ABO Group Rh Factor Antibody Screen (NEGATIVE) Crossmatch (COMPATIBLE) 04/29/24 04/29/24 04/29/24 Range/Units 18:30 18:30 18:30 WBC (3.98-10.04) x10^3/uL RBC (3.93-5.22) x10^6/uL Hgb (11.2-15.7) g/dL Hct (34.1-44.9) % MCV (79.4-94.8) fL MCH (25.6-32.2) pg MCHC (32.2-35.5) g/dL RDW (11.7-14.4) % Plt Count (182-369) x10^3/uL Gran % (34.0-71.1) % Immature Gran % (Auto) (0.001-0.429) % Nucleat RBC Rel Count (0.00-0.2) % Eos # (Auto) (0.04-0.36) x10^3/uL Immature Gran # (Auto) (0.001-0.031) x10^3u/L Absolute Lymphs (auto) (1.18-3.74) x10^3/uL Absolute Monos (auto) (0.24-0.86) x10^3/uL Absolute Nucleated RBC (0.00-0.012) x10^3u/L Lymphocytes % (19.3-51.7) % Monocytes % (4.7-12.5) % Eosinophils % (0.7-5.8) % Basophils % (0.1-1.2) % Absolute Granulocytes (1.56-6.13) x10^3/uL Basophils # (0.01-0.08) x10^3/uL ESR (0-20) mm/hr PT (9.4-12.5) SECONDS INR (0.8-3.0) APTT (25.1-36.5) SECONDS D-Dimer 3.79 H* (0.0-0.50) mg/L Puncture Site pCO2 (35-45) mmHg pO2 (75-100) mmHg pO2/FiO2 Ratio % Base Excess (-2.0-2.0) O2 Saturation (94-100) g/dF ABG pH (7.35-7.45) ABG HCO3 (22-28) ABG O2 Sat (Measured) (95-100) % Edvin Test VBG pH (7.32-7.42) VBG pCO2 at Pat Temp (42-55) mm/Hg VBG pO2 at Pat Temp (25-40) mm/Hg VBG HCO3 (22-28) meq/L VBG O2 Sat (Leodan) (95-100) VBG Base Excess (-2.0-2.0) VBG Hemoglobin VBG Carboxyhemoglobin (0.0-6.9) % T HGB A-a Gradient a/A Ratio Hemoglobin Carboxyhemoglobin (0.0-6.9) % THgb Methemoglobin (1.4-1.5) % Potassium 6.6 H* (3.5-5.1) POC Potassium (3.5-5.1) Temperature C POC O2 Flow Rate % Sodium 138 (135-145) mmol/L Chloride 107 (98-107) mmol/L Carbon Dioxide 27 (22-30) mmol/L Anion Gap 11.2 (5-15) MEQ/L BUN 27 H (7-17) mg/dL Creatinine 1.31 H (0.52-1.04) mg/dL Estimated GFR 42.2 ML/MIN Glucose 104 (74-106) mg/dL Lactic Acid (0.4-2.0) Calcium 8.9 (8.4-10.2) mg/dL Magnesium 2.5 H (1.6-2.3) mg/dL Total Bilirubin 0.90 (0.2-1.3) mg/dL AST 632 H (14-36) U/L ALT 442 H (0-35) U/L Alkaline Phosphatase 188 H (38-126) U/L Ammonia (9-30) umol/L Creatine Kinase 46 (30-135) U/L Troponin I 0.305 H* (0.000-0.033) ng/mL NT-Pro-B Natriuret Pep 4540 (<300) pg/mL Serum Total Protein 7.0 (6.3-8.2) g/dL Albumin 3.9 (3.5-5.0) g/dL TSH 3rd Generation (0.470-4.680) mIU/L Urine Color (Yellow) Urine Appearance (Clear) Urine pH (4.6-8.0) Ur Specific Rea (1.005-1.030) Urine Protein (Negative) Urine Glucose (UA) (Negative) mg/dL Urine Ketones (Negative) Urine Blood (Negative) Urine Nitrite (Negative) Urine Bilirubin (Negative) Urine Urobilinogen (0.2) mg/dL Ur Leukocyte Esterase (Negative) U Hyaline Cast (Auto) (0-2) /LPF Urine Microscopic RBC (0-5) /HPF Urine Microscopic WBC (0-5) /HPF Ur Epithelial Cells (None Seen) /HPF Urine Bacteria (None Seen) /HPF Urine Culture Reflexed (NO) Urine Opiates Level (NEGATIVE) Ur Methadone (NEGATIVE) Urine Barbiturates (NEGATIVE) Ur Phencyclidine (PCP) (NEGATIVE) Urine Amphetamine (NEGATIVE) U Benzodiazepines Scrn (Dewytu=435) ng/mL U Benzodiazepine Level Urine Cocaine (NEGATIVE) Urine Marijuana (THC) (NEGATIVE) Ethyl Alcohol < 10 (0-10) mg/dL Influenza Type A Ag (NEGATIVE) Influenza Type B Ag (NEGATIVE) RSV (PCR) (NEGATIVE) SARS-CoV-2 (PCR) (NEGATIVE) Slides for Path Review ABO Group Rh Factor Antibody Screen (NEGATIVE) Crossmatch (COMPATIBLE) 04/29/24 04/29/24 Range/Units 18:30 18:30 WBC 7.5 (3.98-10.04) x10^3/uL RBC 2.61 L (3.93-5.22) x10^6/uL Hgb 6.1 L* (11.2-15.7) g/dL Hct 22.8 L (34.1-44.9) % MCV 87.4 (79.4-94.8) fL MCH 23.4 L (25.6-32.2) pg MCHC 26.8 L (32.2-35.5) g/dL RDW 18.2 H (11.7-14.4) % Plt Count 20 L* (182-369) x10^3/uL Gran % 82.4 H (34.0-71.1) % Immature Gran % (Auto) 0.5 H (0.001-0.429) % Nucleat RBC Rel Count 0.8 H (0.00-0.2) % Eos # (Auto) 0 L (0.04-0.36) x10^3/uL Immature Gran # (Auto) 0.04 H (0.001-0.031) x10^3u/L Absolute Lymphs (auto) 0.72 L (1.18-3.74) x10^3/uL Absolute Monos (auto) 0.56 (0.24-0.86) x10^3/uL Absolute Nucleated RBC 0.06 H (0.00-0.012) x10^3u/L Lymphocytes % 9.6 L (19.3-51.7) % Monocytes % 7.4 (4.7-12.5) % Eosinophils % 0.0 L (0.7-5.8) % Basophils % 0.1 (0.1-1.2) % Absolute Granulocytes 6.19 H (1.56-6.13) x10^3/uL Basophils # 0.01 (0.01-0.08) x10^3/uL ESR (0-20) mm/hr PT (9.4-12.5) SECONDS INR (0.8-3.0) APTT (25.1-36.5) SECONDS D-Dimer (0.0-0.50) mg/L Puncture Site pCO2 (35-45) mmHg pO2 (75-100) mmHg pO2/FiO2 Ratio % Base Excess (-2.0-2.0) O2 Saturation (94-100) g/dF ABG pH (7.35-7.45) ABG HCO3 (22-28) ABG O2 Sat (Measured) (95-100) % Edvin Test VBG pH (7.32-7.42) VBG pCO2 at Pat Temp (42-55) mm/Hg VBG pO2 at Pat Temp (25-40) mm/Hg VBG HCO3 (22-28) meq/L VBG O2 Sat (Leodan) (95-100) VBG Base Excess (-2.0-2.0) VBG Hemoglobin VBG Carboxyhemoglobin (0.0-6.9) % T HGB A-a Gradient a/A Ratio Hemoglobin Carboxyhemoglobin (0.0-6.9) % THgb Methemoglobin (1.4-1.5) % Potassium (3.5-5.1) POC Potassium (3.5-5.1) Temperature C POC O2 Flow Rate % Sodium (135-145) mmol/L Chloride (98-107) mmol/L Carbon Dioxide (22-30) mmol/L Anion Gap (5-15) MEQ/L BUN (7-17) mg/dL Creatinine (0.52-1.04) mg/dL Estimated GFR ML/MIN Glucose (74-106) mg/dL Lactic Acid 1.1 (0.4-2.0) Calcium (8.4-10.2) mg/dL Magnesium (1.6-2.3) mg/dL Total Bilirubin (0.2-1.3) mg/dL AST (14-36) U/L ALT (0-35) U/L Alkaline Phosphatase (38-126) U/L Ammonia (9-30) umol/L Creatine Kinase (30-135) U/L Troponin I (0.000-0.033) ng/mL NT-Pro-B Natriuret Pep (<300) pg/mL Serum Total Protein (6.3-8.2) g/dL Albumin (3.5-5.0) g/dL TSH 3rd Generation (0.470-4.680) mIU/L Urine Color (Yellow) Urine Appearance (Clear) Urine pH (4.6-8.0) Ur Specific Rea (1.005-1.030) Urine Protein (Negative) Urine Glucose (UA) (Negative) mg/dL Urine Ketones (Negative) Urine Blood (Negative) Urine Nitrite (Negative) Urine Bilirubin (Negative) Urine Urobilinogen (0.2) mg/dL Ur Leukocyte Esterase (Negative) U Hyaline Cast (Auto) (0-2) /LPF Urine Microscopic RBC (0-5) /HPF Urine Microscopic WBC (0-5) /HPF Ur Epithelial Cells (None Seen) /HPF Urine Bacteria (None Seen) /HPF Urine Culture Reflexed (NO) Urine Opiates Level (NEGATIVE) Ur Methadone (NEGATIVE) Urine Barbiturates (NEGATIVE) Ur Phencyclidine (PCP) (NEGATIVE) Urine Amphetamine (NEGATIVE) U Benzodiazepines Scrn (Xqdffi=755) ng/mL U Benzodiazepine Level Urine Cocaine (NEGATIVE) Urine Marijuana (THC) (NEGATIVE) Ethyl Alcohol (0-10) mg/dL Influenza Type A Ag (NEGATIVE) Influenza Type B Ag (NEGATIVE) RSV (PCR) (NEGATIVE) SARS-CoV-2 (PCR) (NEGATIVE) Slides for Path Review YES ABO Group Rh Factor Antibody Screen (NEGATIVE) Crossmatch (COMPATIBLE) - Progress Will see patient in: other (Spoke with & discussed pt with Dr. Renner([id number]) who accepted pt for transfer to [facility] as a direct admission.) Counseled pt/family regarding: lab results, diagnosis, rad results <STEPHANIE ALVARADO - Last Filed: 04/29/24 23:01> - Progress Air Movement: fair Blood Culture(s) Obtained: Yes Antibiotics given: Yes <GEMA LOAIZA - Last Filed: 05/02/24 16:20> - Progress Progress Note: 04/29/24 19:[address] Alvarado @ 1910: perrl, pharynx mildly erythematous, lungs have minimal rales over posterior bases, no cardiac rub, abdominal B.S. normal, no ankle edema, pt alert on my exam but speech is garbled. (STEPHANIE ALVARADO) Patient was found unresponsive ambulance called who brought her into the emergency room unresponsive. Patient was given Narcan and began to respond. Her oxygen saturations have been mid 90s to upper 90s on 15 L nonrebreather. Have audible crackles from the door. Initial blood gas showed a pH of 7.29, pCO2 of 52 and hemoglobin of 6.3. Type and screen performed in 2 units of packe d red blood cells requested. Platelets were found to be 20 so a unit of platelets were also requested. CT head and chest without contrast were obtained to start the workup. She is maintaining her airway at this time will place on BiPAP once she returns from CT scan to improve her hypercarbia and push fluid out of her alveoli. Discussed case with Dr. Alvarado who will take over at 1900. 04/29/24 18:51 (GEMA LOAIZA) Medical Desision Making - Diagnostic Testing Diagnostic test were ordered, analyzed, and reviewed by me: Yes Radiological Interpretation: Teleradiologist Report <STEPHANIE ALVARADO - Last Filed: 04/29/24 23:01> - Departure Departure Disposition: Transfer Critical Care Time: Yes Critical Care Time(excluding separately billable procedures): Critical 30-74 mins <STEPHANIE ALVARADO - Last Filed: 04/29/24 23:01> <GEMA LOAIZA - Last Filed: 05/02/24 16:20> - Departure Clinical Impression: Chest pain, AMS (altered mental status), Elevated troponin, Thrombocytopenia, UDS + for amphetamine, UTI (urinary tract infection), Anemia Condition: Stable Referrals: ELENA HALL MD [Primary Care Provider] - Follow up/PCP as directed
[2024-04-29] MEDS: NARCAN 2 MG/2 ML IV ONE (18:30)
[2024-04-29 18:41] LABS: Absolute Neutrophil Ct (ANC) 6.19 x10^3/uL (1.56-6.13); BASOPHIL % 0.1 % (0.1-1.2); Basophil (Absolute #) 0.01 x10^3/uL (0.01-0.08); Eosinophil (Absolute #) 0 x10^3/uL (0.04-0.36); Hematocrit 22.8 % (34.1-44.9); IMMATURE GRAN # 0.04 x10^3u/L (0.001-0.031); IMMATURE GRAN % 0.5 % (0.001-0.429); Lymphocyte (Absolute #) 0.72 x10^3/uL (1.18-3.74); Lymphocytes % 9.6 % (19.3-51.7); Mean Cell Volume 87.4 fL (79.4-94.8); Mean Corpuscular Hemoglobin 23.4 pg (25.6-32.2); Mean Corpuscular Hgb Concent. 26.8 g/dL (32.2-35.5); Monocyte (Absolute #) 0.56 x10^3/uL (0.24-0.86); Monocytes % 7.4 % (4.7-12.5); NUCLEATED RBC # 0.06 x10^3u/L (0.00-0.012); NUCLEATED RBC % 0.8 % (0.00-0.2); Neutrophil % 82.4 % (34.0-71.1); Red Blood Count 2.61 x10^6/uL (3.93-5.22); Red Cell Distribution Width 18.2 % (11.7-14.4); White Blood Count 7.5 x10^3/uL (3.98-10.04)
[2024-04-29 18:46] LABS: Hemoglobin 6.1 g/dL (11.2-15.7); Platelet Count 20 x10^3/uL (182-369)
[2024-04-29] MEDS ORDERED: Lasix 40 MG/4 ML ONE (18:50)
[2024-04-29] MEDS: Lasix 40 MG/4 ML IV ONE (18:51)
[2024-04-29 18:57] LABS: ALBUMIN 3.9 g/dL (3.5-5.0); ALKALINE PHOSPHATASE 188 U/L (38-126); ANION GAP 11.2 MEQ/L (5-15); BLOOD UREA NITROGEN 27 mg/dL (7-17); CHLORIDE 107 mmol/L (98-107); CK-Creatinine Phosphokinase 46 U/L (30-135); Calcium 8.9 mg/dL (8.4-10.2); Carbon Dioxide 27 mmol/L (22-30); Creatinine 1 1.31 mg/dL (0.52-1.04); EST GLOMERULAR FILTRATION RATE 42.2 ML/MIN; ETHYL ALCOHOL < 10 mg/dL (0-10); Glucose 104 mg/dL (74-106); MAGNESIUM 2.5 mg/dL (1.6-2.3); SGOT/AST 632 U/L (14-36); SGPT/ALT 442 U/L (0-35); SODIUM 138 mmol/L (135-145)
[2024-04-29 19:05] LABS: A-aADO2 509; ARTERIAL BLD GAS O2 SATURATION 99.3 % (95-100); ARTERIAL BLOOD GAS BASE EXCESS -1.5 (-2.0-2.0); ARTERIAL BLOOD GAS FIO2 100 %; ARTERIAL BLOOD GAS PCO2 52 mmHg (35-45); ARTERIAL BLOOD GAS PO2 139 mmHg (75-100); ARTERIAL BLOOD GAS pH 7.29 (7.35-7.45); CARBOXYHEMOGLOBIN 1.7 % THgb (0.0-6.9); Methhemoglobin 0.6 % (1.4-1.5); paO2 pAO1 0.21
[2024-04-29 19:06] LABS: ABG HEMOGLOBIN 6.3; ABG POTASSIUM 6.5 (3.5-5.1); ABG SITE RIGHT BRACHIAL
[2024-04-29 19:10] LABS: Potassium 6.6 mmol/L (3.5-5.1)
[2024-04-29] MEDS ORDERED: Sodium Chloride 0.9% 1000 ML 1,000 ML ONE (19:10)
[2024-04-29 19:21] LABS: Barbiturate,Urine NEGATIVE (NEGATIVE); Cocaine,Urine NEGATIVE (NEGATIVE); Methadone,Urine NEGATIVE (NEGATIVE); Opiate,Urine NEGATIVE (NEGATIVE); PCP,Urine NEGATIVE (NEGATIVE); THC,Urine NEGATIVE (NEGATIVE)
[2024-04-29] MEDS: Sodium Chloride 0.9% 1000 ML 1,000 ML IV SCH (19:27)
[2024-04-29] MEDS: ROCEPHIN 1 GM / 100 ML NaCl 1 GM/100 ML IVPB IV ONE (19:29)
[2024-04-29 19:35] LABS: VBG BASE EXCESS -2.2 (-2.0-2.0); VBG CARBOXYHEMOGLOBIN 3.8 % T HGB (0.0-6.9); VBG HCO3- 22.2 meq/L (22-28); VBG HEMOGLOBIN 6.3; VBG O2 SATURATION 96.4 (95-100); VBG POTASSIUM 5.6 (3.5-5.1); VBG pH 7.41 (7.32-7.42)
[2024-04-29 19:38] LABS: INR 1.05 (0.8-3.0); PROTIME 11.4 SECONDS (9.4-12.5)
[2024-04-29 19:51] LABS: Calcium 8.7 mg/dL (8.4-10.2); Creatinine 1 1.27 mg/dL (0.52-1.04); EST GLOMERULAR FILTRATION RATE 43.8 ML/MIN; Potassium 5.3 mmol/L (3.5-5.1)
--- NOTE | 2024-04-29 19:56 | XRAY ---
CLINICAL HISTORY: hypoxia, unresponsive COMPARISON: CT 02/04/2023. TECHNIQUE: An axial non-contrast CT scan of the brain was performed from the skull base to the high parietal region. One of the following dose-reduction techniques was utilized for this exam. Automated exposure control, adjustment of the mA and/or kV according to patient size, and use of iterative reconstruction. CTDI: 53.92mGy; DLP: 1167.67mGy-cm. FINDINGS: Persistence of hypodense areas was noted in the subcortical and periventricular white matter bilaterally, suggestive of microvascular ischemic changes. Fazekas grade 3. Persistence of tiny old lacunar infarcts noted in the right basal ganglia region. No intracerebral or extra axial hematoma. Mild prominent ventricles and extra-axial CSF spaces were noted finding consistent with age-appropriate global brain involutional changes. Marvin-white matter differentiation is maintained. No midline shifts or deformity. No established territorial infarction was identified. Normal CT appearance of the posterior fossa structures namely the cerebellar hemispheres, brainstem, and cerebellar peduncles. The IACs are unremarkable. The cerebellopontine angles are clear. The pituitary gland, the pineal gland, and the optic chiasm are unremarkable. The osseous structures in the skull base are unremarkable. Septum nasi shows mild deviation to the right. The scanned paranasal sinuses are clear. IMPRESSION: 1. Microvascular changes persist in the brain with old lacunar infarcts in the right basal ganglia region. 2. Age-appropriate global brain involutional changes noted. 3. No intra or extra-axial hematomas or parenchymal territorial hypodense areas suggestive of acute ischemic insult. Early changes of stroke may not be detected on a CT scan. If strong clinical suspicion of stroke, then suggest MRI with diffusion-weighted imaging. Electronically Signed by: Perri Diaz MD. (04/29/2024 19:50:51 EDT)
[2024-04-29 20:11] LABS: Amphetamine,Urine POSITIVE (NEGATIVE)
[2024-04-29 20:11] LABS: TROPONIN 0.305 ng/mL (0.000-0.033)
--- NOTE | 2024-04-29 20:12 | XRAY ---
CLINICAL HISTORY: hypoxia, unresponsive COMPARISON: None. TECHNIQUE: Contiguous 3.[address] images of the chest were acquired with and without administration of intravenous contrast. Coronal and sagittal reconstructions were obtained. One of the following dose reduction techniques were utilized for this exam: Automated exposure control, adjustment of the mA and/or kV according to patient size, and use of iterative reconstruction. FINDINGS: A tiny spiculated nodule measuring about 12 x 16 mm in AP x TR dimensions is seen in the lateral basal segment of the left lower lobe. Minimal bilateral pleural effusion with passive atelectasis. (R>L). Tiny pleural-based nodule involving the right upper lobe posterior segment image #19 ( / ) Centrolobular and paraseptal emphysema with right predominance. The rest of the scanned pulmonary parenchyma shows no definite consolidative lesions. Heart size is normal, and there is no pericardial effusion. No pathologically enlarged mediastinal, hilar or axillary lymph node identified. Calcified atheromas of the thoracic aorta. There is no definite mass lesion in the chest wall. Splenic micro-calcifications are seen. The rest of the scanned upper abdomen is unremarkable. Degenerative changes seen in the visualized spine, no lytic/sclerotic lesion seen in the visualized bones to suggest the bony metastasis. IMPRESSION: A tiny spiculated nodule measuring about 12 x 16 mm in AP x TR dimensions is seen in the lateral basal segment of the left lower lobe. As per Fleischner Society pulmonary nodule recommendations Solitary solid nodule >8 mm, low-risk and high-risk patients: consider CT at 3 months, PET-CT, or tissue sampling Minimal bilateral pleural effusion with passive atelectasis. (R>L) Centrolobular and paraseptal emphysema with right predominance. Tiny pleural-based nodule involving the right upper lobe posterior segment image #19 ( ) Calcified atheromas of the thoracic aorta. Splenic micro-calcifications Electronically Signed by: Perri Diaz MD. (04/29/2024 20:08:10 EDT)
[2024-04-29 20:16] LABS: INFLUENZA A NEGATIVE (NEGATIVE); INFLUENZA B NEGATIVE (NEGATIVE); RESPIRATORY SYNCTIAL VIRUS NEGATIVE (NEGATIVE); SARS-CoV-2 Xpert Express NEGATIVE (NEGATIVE)
[2024-04-29] MEDS ORDERED: VANCOMYCIN 1 GRAM/200 ML BAG 1 GM/200 ML PIGGYBACK IV ONE (20:20)
[2024-04-29 20:21] LABS: ADD URINE CULTURE? ORDERED SEPARATELY (NO); Appearance Clear (Clear); Bacteria Many /HPF (None Seen); Bilirubin Negative (Negative); Blood Negative (Negative); Epithelial Cells Few /HPF (None Seen); Glucose, Urine Negative (Negative); Ketones Negative (Negative); Leukocyte Esterase Small (Negative); Nitrite Positive (Negative); Protein,Urine Dip Trace (Negative); RBC 0-2 /HPF (0-5); Specific Gravity 1.015 (1.005-1.030); Urobilinogen 0.2 mg/dL (0.2)
[2024-04-29] MEDS: VANCOMYCIN 1 GRAM/200 ML BAG 1 GM/200 ML PIGGYBACK IV ONE (20:23)
[2024-04-29] MEDS ORDERED: Nitrostat 0.4 MG (ED) SL ONE ×3 (20:31→21:32)
[2024-04-29] MEDS: Nitrostat 0.4 MG (ED) SL ONE ×2 (20:32→21:34)
[2024-04-29 20:49] LABS: ABO TYPING O; Antibody Screen NEGATIVE (NEGATIVE); RH TYPING POSITIVE
[2024-04-29 20:52] LABS: CROSS MATCH (PRBC) COMPATIBLE (COMPATIBLE)
[2024-04-29 20:53] LABS: CROSS MATCH (PRBC) COMPATIBLE (COMPATIBLE)
[2024-04-29 23:00] LABS: Slide Review 1 YES
[2024-04-30 03:26] VITALS: TEMP 98.2
[2024-04-30] MEDS ORDERED: Sodium Chloride 0.9% 1000 ML 1,000 ML ONE (04:48)
[2024-04-30] MEDS ORDERED: Nitrostat 0.4 MG (ED) SL ONE (05:51)
[2024-04-30] MEDS: Nitrostat 0.4 MG (ED) SL ONE ×2 (05:52→10:42)
[2024-04-30 15:03] VITALS: BP 129/64; PULSE 104; RESP 11; O2SAT 95
[2024-04-30 15:47] LABS: Absolute Neutrophil Ct (ANC) 9.49 x10^3/uL (1.56-6.13); BASOPHIL % 0.1 % (0.1-1.2); Basophil (Absolute #) 0.01 x10^3/uL (0.01-0.08); Eosinophil % 0.1 % (0.7-5.8); Eosinophil (Absolute #) 0.01 x10^3/uL (0.04-0.36); Hematocrit 31.2 % (34.1-44.9); Hemoglobin 9.1 g/dL (11.2-15.7); IMMATURE GRAN # 0.12 x10^3u/L (0.001-0.031); IMMATURE GRAN % 1.1 % (0.001-0.429); Lymphocyte (Absolute #) 0.52 x10^3/uL (1.18-3.74); Mean Cell Volume 88.4 fL (79.4-94.8); Mean Corpuscular Hemoglobin 25.8 pg (25.6-32.2); Mean Corpuscular Hgb Concent. 29.2 g/dL (32.2-35.5); Monocyte (Absolute #) 0.33 x10^3/uL (0.24-0.86); Monocytes % 3.1 % (4.7-12.5); NUCLEATED RBC # 0.08 x10^3u/L (0.00-0.012); NUCLEATED RBC % 0.8 % (0.00-0.2); Neutrophil % 90.6 % (34.0-71.1); Red Blood Count 3.53 x10^6/uL (3.93-5.22); Red Cell Distribution Width 16.9 % (11.7-14.4); White Blood Count 10.5 x10^3/uL (3.98-10.04)
[2024-04-30 16:02] LABS: ALBUMIN 3.8 g/dL (3.5-5.0); ANION GAP 13.1 MEQ/L (5-15); BILIRUBIN,TOTAL 1.4 mg/dL (0.2-1.3); Creatinine 1 0.98 mg/dL (0.52-1.04); EST GLOMERULAR FILTRATION RATE 59.8 ML/MIN; Potassium 4.9 mmol/L (3.5-5.1); Total Protein 6.9 g/dL (6.3-8.2)
[2024-04-30 16:15] LABS: Platelet Count 19 x10^3/uL (182-369)
[2024-04-30 16:18] LABS: Slide Review 1 YES
[2024-05-01 20:13] LABS: Benzodiazepines Negative ng/mL (Cutoff=300)
== END 2024-04-30 18:12 | disposition short-term general hospital (02) ==
LOC: ED 18:25
DX: R41.82 Altered mental status, unspecified (principal); R07.9 Chest pain, unspecified; R77.8 Other specified abnormalities of plasma proteins; D69.6 Thrombocytopenia, unspecified; F15.90 Other stimulant use, unspecified, uncomplicated; N39.0 Urinary tract infection, site not specified; D64.9 Anemia, unspecified; E78.5 Hyperlipidemia, unspecified; I10 Essential (primary) hypertension; Z79.899 Other long term (current) drug therapy; Z72.0 Tobacco use
CPT/HCPCS: 0241U; 36000; 36415; 36430; 36600; 70450; 71250; 80048; 80053; 80307; 81001; 82077; 82140; 82375; 82550; 82803; 82805; 83605; 83735; 83880; 84443; 84484; 85025; 85379; 85610; 85652; 85730; 86850; 86900; 86901; 86922; 87040; 87077; 87086; 87186; 93005; 93041; 94002; 94760; 96365; 96367; 96374; 96375; 99285; 99291; P9016; J0696; J1940; J2310; A9270-GY; J3370